=== PATIENT | female | born 1985 | race Caucasian/White ===

== ENCOUNTER 2025-02-28 10:57 | Emergency (ER) | payer BC, SELFPAY ==
[2025-02-28] VITALS (8 sets, daily range): BP systolic 142–183; BP diastolic 71–102; BMI 36.7
[2025-02-28 11:47] LABS: Hematocrit 40.9 % (37.0-47.0); Hemoglobin 14.3 g/dL (12.0-16.0); Mean Corp Hgb Conc. 35.0 g/dL (33.0-37.0); Mean Corpuscular Volume 81.8 fL (81.0-99.0); Nucleated Red Blood Cells % 0 %; Platelet Count 362 10^3/uL (130-400); Red Cell Dist. Width 13.5 % (11.5-14.5)
[2025-02-28 12:01] LABS: ALT (SGPT) 18 U/L (0-35); AST (SGOT) 18 U/L (14-36); Albumin 4.4 g/dl (3.5-5.0); Alkaline Phosphatase 108 U/L (38-126); Blood Urea Nitrogen 18 mg/dl (7-17); Calcium 10.2 mg/dl (8.4-10.2); Carbon Dioxide 25 mmol/L (22-30); Chloride 104 mmol/L (98-107); Estimated Creatinine Clearance > 125 ml/min; Glucose 144 mg/dl (70-99); Potassium 3.9 mmol/L (3.5-5.1); Sodium 136 mmol/L (135-145); Total Protein 7.5 g/dl (6.3-8.2); eGFR > 60.00
--- NOTE | 2025-02-28 12:44 | ED.GENMED ---
History of Present Illness
General
Chief Complaint: Dizziness
Source: patient and spouse
Exam Limitations: none
Time Seen by Provider: 02/28/25 12:35
Nursing documentation reviewed up to this point in time: agreed with
History of Present Illness
History of Present Illness:
39-year-old female with past medical history of hypertension presents to the emergency department for evaluation of dizziness. Patient reports onset of symptoms today while she was at work and have been constant since that time. She reports onset
while she was doing desk work. She describes a severe room spinning sensation associated with nausea and vomiting prior to arrival although she says nausea has improved. She says symptoms are worse with eyes open and worse with movement of the
head. No clear relieving factors noted. She denies any associated neck pain. Denies significant headache. Denies any weakness or numbness in extremities. She denies any change in her vision or speech. She denies any chest pain or palpitations
or shortness of breath. She denies any other acute complaints. She says that she did have a similar episode about 7 years ago for which she was seen by ENT and told that it was related to a 'deep inner ear infection.' She does note that over the
past week or so she has had issues with nasal congestion that she attributes to allergies. 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
Review of Systems
Review of Systems
All Other Systems: ROS reviewed and negative except as documented in HPI and ROS
Constitutional: Denies fever
EENT: Reports other (Congestion)
Respiratory: Denies trouble breathing
Cardiac: Denies chest pain or palpitations
ABD/GI: Reports nausea and vomiting; Denies abdominal pain
: Denies flank pain
Musculoskeletal: Denies neck pain or back pain
Neurological: Reports dizzy; Denies headache, weakness or numbness
Phy Exam
Physical Exam
Physical Exam:
General: Awake, alert, sitting in bed with her eyes closed, not in acute distress
Head: Normocephalic, atraumatic
Eyes: Conjunctiva normal, EOMI�she has marked rightward nystagmus
Ears: External ears and canals appear normal bilaterally; on exam of the right TM she has positive light reflex, no retraction or bulging of the TM, no erythema; on exam of the left TM she has some slight bulging of the TM but no erythema
Throat: Airway intact, handling secretions
Neck: Trachea midline, supple without meningismus
Lungs: Clear to auscultation bilaterally, no wheezing, rales, rhonchi
Heart: Regular rate and rhythm, no murmurs, gallops, or rubs
Abd: Soft, non distended, nontender
Neuro: Cranial nerves intact, speech fluid, motor and sensory intact in all extremities
Extremities: No edema in extremities, warm and well-perfused
Scores
Heart Failure Risk
Heart Failure Risk Score: Not Applicable
Heart Score for Chest Pain Patients
STEMI patient?: Not applicable
Withdrawal Assessment of Alcohol
Withdrawal Assessment Completed?: Not applicable
Course
Orders/Labs/Results
Orders:
Orders
02/28/25 11:36
EKG [Electrocardiogram (*1)] Urgent
Reason for Study: Vertigo / Dizzy
EKG- Treatment ONCE
02/28/25 11:38
CBC/With Diff [Complete Blood Count/With Diff] Urgent
CMP [Comprehensive Metabolic Panel] Urgent
02/28/25 12:37
0.9% Sodium Chloride 1000 ml [Nss] 1,000 ml IV BOLUS
Meclizine [Antivert] 25 mg PO NOW STA
02/28/25 12:52
Pt Eval And Treat Urgent
Treatment: vertigo
Activity Level: With Assistance
02/28/25 13:39
diazePAM [Valium Injection] 2 mg IV NOW STA
Abnormal Lab Results
02/28/25
11:38
WBC 11.2 H 10^3/uL
(4.8-10.8)
Absolute Neuts (auto) 9.0 H 10^3/uL
(1.4-6.5)
Neutrophils % 80.3 H %
(42.2-75.2)
Lymphocytes % 12.8 L %
(20.5-51.1)
BUN 18 H mg/dl
(7-17)
Glucose 144 H mg/dl
(70-99)
02/28/25 11:38
02/28/25 11:38
Vital Signs
Initial and Last Documented VS:
Initial Vital Signs
Temp Pulse Resp BP Pulse Ox
36.3 C 105 16 183/102 100
02/28/25 11:00 02/28/25 11:00 02/28/25 11:00 02/28/25 11:00 02/28/25 11:00
Last Documented Vital Signs
Temp Pulse Resp BP Pulse Ox
36.3 C 94 17 158/82 97
02/28/25 11:00 02/28/25 13:45 02/28/25 13:45 02/28/25 13:11 02/28/25 13:45
MDM/Problems Addressed
Differential Diagnosis Includes:
BPPV, eustachian tube dysfunction, viral labyrinthitis/vestibular neuritis, M�ni�re's, etc; nothing by history or exam to suggest that this is central vertigo such as stroke or dissection and in my judgment no further workup for these diagnoses
indicated at this point
MDM/Problems Addressed:
39-year-old female presents for evaluation of dizziness as described above. She is hypertensive here although vital signs have greatly improved by my assessment�initially 183/102, blood pressure 143/80 on my assessment. Mild tachycardia in triage
again improved by my assessment. Physical exam is as above. Overall clinical picture is consistent with peripheral vertigo; she has been dealing with some allergy type symptoms for the past few days could be that this is a viral illness with now
labyrinthitis versus some eustachian tube dysfunction related to allergy symptoms. She had labs in triage including a CBC and a CMP which showed a marginal leukocytosis and random hyperglycemia nonfasting neither of likely clinical significance.
Her EKG shows sinus rhythm. Will plan to treat symptomatically. Reassess at the above.
Meclizine provided some slight improvement but patient still having difficulty ambulating/opening eyes without severe dizziness. Will treat with IV Valium. Patient was seen by PT who suspects labyrinthitis/vestibular neuritis.
Patient feeling better after ED treatment, able to ambulate with some light assistance. Offered admission for symptomatic control she prefers to be discharged. Will trial Medrol Dosepak, meclizine as needed and refer to ENT for outpatient
follow-up. Patient very comfortable with this plan. All questions answered.
Acute Exacerbation and/or Progression of Chronic Illness:
Acutely hypertensive improved without intervention�likely attributable to her acute symptoms, indication for emergent antihypertensive treatment at this point
*Pulse Oximetry
SaO2: 96
Oxygen Mode of Delivery: Room air
Patient hypoxic: no (96%)
*EKG
Interpreted by ED Provider?: Yes
Heart Rate: 90
Rate: normal
Rhythm: sinus
[place]: normal axis
Interval: normal interval
QRS Pattern: normal QRS
Ischemia: no ischemia
*Critical Care Note
Total Time (30-74mins, 75-104mins- exclusive of procedures): Not Applicable
Data Reviewed
Source: patient and spouse
Patient Management
Discussion with other providers: Other (Discussed with PT)
Escalation/DeEscalation of care consider admission/obs:
Considered admission for symptomatic control�shared decision making discharged after some supportive care in the ER
ED Attending Note
-
Portions of this chart may have been created with voice recognition software.� Occasional wrong word or��sound alike� substitutions may have occurred due to the inherent limitations of voice recognition software.
Discharge Plan
Departure
Patient Disposition: Home (Routine Discharge)
Date of Disposition: 02/28/25
Time of Disposition: 14:31
Patient with high blood pressure during this ER visit?: Yes
Discharge Problem:
Vertigo
Instructions: Vertigo (a type of dizziness)
Prescriptions:
New
meclizine 25 mg tablet
25 mg PO BID PRN (Reason: dizziness) Qty: 20 0RF
methylprednisolone [Medrol (Donovan)] 4 mg tablets,dose pack
See Rx Instructions .ROUTE .COMPLEX Qty: 21 0RF
Rx Instructions:
for 6 days
Referrals:
Sabiha Allison MD [Active, Otology] - Call in 1-3 days for appt
Activity Restrictions/Additional Instructions:
Thank you for visiting the Emergency Department at [facility].
1. Please schedule a follow up appointment as directed. Call first thing tomorrow morning to make an appointment.
2. If indicated, please take your medications as instructed and indicated on discharge paperwork.
3. If any of your symptoms do not improve, or persist, or become more severe within 6-12 hours, please return to the emergency department for further care.
4. Please return to the emergency department if you develop a headache, neck pain/stiffness, fever greater than 100.4F, chest pain, shortness of breath, persistent nausea, vomiting, slurred speech, difficulty walking, numbness/tingling, weakness,
signs of infection or any other symptoms that are worrisome to you.
Please call [phone] if you have any questions.
Interventions
Interventions:
*Risk Screen - Suicide Last Done: 02/28/25 11:26
*General Assessment Last Done: 02/28/25 11:26
*Neglect/Abuse Screening Last Done: 02/28/25 11:26
*ED- Fall Risk Assessment Last Done: 02/28/25 11:26
*ED COVID-19 Vaccine History Last Done: 02/28/25 11:26
ED- Neurological Assessment Last Done: 02/28/25 12:00
ED- Cardiac Assessment Last Done: 02/28/25 12:00
ED Swallowing Screen Last Done: 02/28/25 12:00
Discharge Date and Time
Print Language: PARAGUAYAN
[2025-02-28] MEDS: ANTIVERT 25 MG PO (12:57)
[2025-02-28] MEDS: NSS 1000 IV (12:58)
[2025-02-28] MEDS: VALIUM INJECTION 2 MG IV (14:01)
== END 2025-02-28 15:15 | disposition home or self-care (01) ==
LOC: EMR 10:57
PROVIDERS: Emergency Medicine; EMERGENCY PHYSICIAN Emergency Medicine
DX: R42 Dizziness and giddiness (principal); D72.829 Elevated white blood cell count, unspecified; R73.9 Hyperglycemia, unspecified; I10 Essential (primary) hypertension
CPT/HCPCS: 99284; 96374; 96361; 80053; 85025; 93005